=== PATIENT | female | born 1990 | race Caucasian/White ===

== ENCOUNTER 2016-07-06 10:12 | Observation (INO) | payer OTHER ==
[~2016-07-06] VITALS: Ht 154.9 cm; Wt 90.3 kg
[2016-07-06 11:06] VITALS: BP 120/75
== END 2016-07-06 13:20 | disposition home or self-care (01) ==
LOC: MFCC 10:12
PROVIDERS: ADMIT Obstetrics & Gynecology; ATTEND Obstetrics & Gynecology
DX: O26.899 Other specified pregnancy related conditions, unspecified trimester (principal); R10.9 Unspecified abdominal pain; Z3A.00 Weeks of gestation of pregnancy not specified
CPT/HCPCS: 59025; 76819; G0378; Q0092

== ENCOUNTER 2016-07-15 23:30 | Observation (INO) | payer OTHER ==
[~2016-07-15] VITALS: Ht 152.4 cm; Wt 90.7 kg
[2016-07-16] MEDS ORDERED: PREN1SGL25 PO (00:02)
[2016-07-16] MEDS ORDERED: IRON65TA11 PO (00:05)
[2016-07-16 00:21] VITALS: BP 112/66
== END 2016-07-16 01:30 | disposition home or self-care (01) ==
LOC: MLD 23:30
PROVIDERS: ADMIT Obstetrics & Gynecology; ATTEND Obstetrics & Gynecology
DX: O26.899 Other specified pregnancy related conditions, unspecified trimester (principal); R03.0 Elevated blood-pressure reading, without diagnosis of hypertension; Z3A.00 Weeks of gestation of pregnancy not specified
CPT/HCPCS: 76815; 81000; G0378; Q0092

== ENCOUNTER 2016-08-28 20:30 | Observation (INO) | payer OTHER ==
[~2016-08-28] VITALS: Ht 154.9 cm; Wt 94.3 kg
[~2016-08-28 20:30] MED LIST: IRON65TA11 PO; PREN1SGL25 PO
[2016-08-28 22:13] VITALS: BP 119/60
== END 2016-08-28 22:15 | disposition home or self-care (01) ==
LOC: MLD 20:30
PROVIDERS: ADMIT Obstetrics & Gynecology; ATTEND Obstetrics & Gynecology
DX: O12.03 Gestational edema, third trimester (principal); O26.893 Other specified pregnancy related conditions, third trimester; R10.30 Lower abdominal pain, unspecified; Z3A.36 36 weeks gestation of pregnancy
CPT/HCPCS: 76815; 81000; G0378

== ENCOUNTER 2016-09-09 17:28 | Observation (INO) | payer OTHER ==
[~2016-09-09] VITALS: Ht 154.9 cm; Wt 99.8 kg
[2016-09-09 18:30] VITALS: BP 126/73
[2016-09-09 18:30] LABS: BASOPHILS # (AUTO) 0.1 K/uL (0.00-0.22); BASOPHILS % (AUTO) 0.5 % (0.0-2.0); EOSINOPHILS # (AUTO) 0.3 K/uL (0-0.4); EOSINOPHILS % (AUTO) 1.9 % (0.0-4.0); HEMATOCRIT 38.1 % (36-48); HEMOGLOBIN 12.8 g/dL (12.0-16.0); LYMPHOCYTES # (AUTO) 1.7 K/uL (2.5-16.5); LYMPHOCYTES % (AUTO) 10.6 % (20.5-51.1); MEAN CORPUSCULAR HEMOGLOBIN 29 pg (27-31); MEAN CORPUSCULAR HGB CONC 34 g/dL (33-37); MEAN CORPUSCULAR VOLUME 87 fL (80-94); MONOCYTES % (AUTO) 6.3 % (1.7-9.3); NEUTROPHILS # (AUTO) 12.6 K/uL (1.8-7.7); NEUTROPHILS % (AUTO) 80.7 % (42.2-75.2); PLATELET COUNT (AUTO) 236 K/uL (140-450); RED BLOOD CELL COUNT(AUTO) 4.38 MIL/uL (4.20-5.40); RED CELL DISTRIBUTION WIDTH 12.6 % (11.6-13.7); WHITE BLOOD COUNT (AUTO) 15.7 K/uL (4.8-10.8)
[2016-09-09 18:55] LABS: CALCIUM 8.6 mg/dL (8.5-10.1); CARBON DIOXIDE 22.7 mmol/L (21-32); CREATININE 0.6 mg/dL (0.6-1.3); POTASSIUM 3.7 mmol/L (3.5-5.1)
[2016-09-09 18:57] LABS: APPEARANCE,URINE CLOUDY (CLEAR); BILIRUBIN,URINE NEGATIVE (NEGATIVE); BLOOD, URINE NEGATIVE (NEGATIVE); COLOR,URINE YELLOW (YELLOW); LEUKOCYTE ESTERASE ,URINE TRACE (NEGATIVE); NITRITE, URINE NEGATIVE (NEGATIVE); PROTEIN,URINE NEGATIVE (NEGATIVE); UGLUCOSE NEGATIVE (NEGATIVE); UROBILINOGEN,URINE 0.2 EU/dL (0.2 - 1)
[2016-09-09 19:01] LABS: ALBUMIN 2.6 g/dL (3.4-5.0); BILIRUBIN,DIRECT 0.1 mg/dL (0.0-0.3); TOTAL BILIRUBIN 0.4 mg/dL (0.0-1.0); TOTAL PROTEIN, SERUM 6.8 g/dL (6.4-8.2)
[2016-09-09 19:05] LABS: BACTERIA,URINE 4+ /HPF (None Seen); RBC,URINE 0-5 /HPF (0-5); SQUAMOUS EPITHELIAL CELL,UR 50-80 /LPF (0-3 (FEW))
[2016-09-09 19:12] LABS: PARTIAL THROMBOPLASTIN TIME 27.4 secs (22-35.6)
[2016-09-09] MEDS ORDERED: NALBUPHINE 10 MG/ML AMP IVP PRN (21:55)
[2016-09-09] MEDS ORDERED: PROMETHAZINE 25 MG/ML VIAL IM PRN (21:55)
[2016-09-09] MEDS ORDERED: NALBUPHINE HYDROCHLORIDE 10 MG/ML VIAL ONE (22:05)
[2016-09-10] MEDS ORDERED: NALBUPHINE HYDROCHLORIDE 10 MG/ML VIAL ONE (00:19)
[2016-09-10] MEDS ORDERED: TERBUTALINE 1 MG/ML VIAL SUBQ ONE (00:19)
[2016-09-10] MEDS ORDERED: ACETAMINOPHEN 325 MG TAB PO PRN (01:35)
[2016-09-10] MEDS ORDERED: ACETAMINOPHEN 325 MG TAB ONE ×2 (01:56→08:26)
[2016-09-10] MEDS ORDERED: ONDANSETRON 4 MG/2 ML VIAL ONE (01:56)
[2016-09-10] MEDS ORDERED: ONDANSETRON 4 MG/2 ML VIAL IVP PRN (02:45)
== END 2016-09-10 12:20 | disposition home or self-care (01) ==
LOC: MLD 17:28
PROVIDERS: ADMIT Obstetrics & Gynecology; ATTEND Obstetrics & Gynecology
DX: O26.893 Other specified pregnancy related conditions, third trimester (principal); R10.30 Lower abdominal pain, unspecified; R11.0 Nausea; R51 Headache; H53.8 Other visual disturbances; M79.89 Other specified soft tissue disorders; Z3A.38 38 weeks gestation of pregnancy
CPT/HCPCS: 36415; 76805; 80053; 81001; 82248; 85025; 85379; 85384; 85730; 87086; 87653; G0378; J2300; J2405; J3105; J7120; Q0092

== ENCOUNTER 2016-09-15 13:15 | Inpatient (IN) | payer OTHER ==
[~2016-09-15] VITALS: Ht 154.9 cm; Wt 99.8 kg
[2016-09-15 14:17] VITALS: BP 115/68
[2016-09-15] MEDS ORDERED: NALBUPHINE HYDROCHLORIDE 10 MG/ML VIAL IVP PRN (16:10)
[2016-09-15] MEDS ORDERED: METHYLERGONOVINE 0.2 MG/ML AMP IM PRN (16:10)
[2016-09-15] MEDS ORDERED: PROMETHAZINE 25 MG/ML VIAL IVP PRN (16:10)
[2016-09-15] MEDS ORDERED: OXYTOCIN 10 UNITS/ML VIAL IM SCH (16:10)
[2016-09-15] MEDS ORDERED: CARBOPROST 250 MCG/ML AMP IM PRN (16:10)
[2016-09-15] MEDS ORDERED: MISOPROSTOL 25 MCG TAB VG SCH (16:15)
[2016-09-15] MEDS ORDERED: NALBUPHINE HYDROCHLORIDE 10 MG/ML VIAL IVP SCH (16:19)
[2016-09-15] MEDS ORDERED: PROMETHAZINE 25 MG/ML VIAL IVP SCH (16:20)
[2016-09-15] MEDS ORDERED: MISOPROSTOL 25 MCG TAB VG PRN (16:25)
[2016-09-15] MEDS ORDERED: OXYTOCIN 20 UNITS/LR PREMIX 1,000 ML IV SCH (16:25)
[2016-09-15 17:04] LABS: HEMATOCRIT 39.5 % (36-48); HEMOGLOBIN 13.3 g/dL (12.0-16.0); MEAN CORPUSCULAR HEMOGLOBIN 29 pg (27-31); MEAN CORPUSCULAR HGB CONC 34 g/dL (33-37); MEAN CORPUSCULAR VOLUME 87 fL (80-94); PLATELET COUNT (AUTO) 240 K/uL (140-450); RED BLOOD CELL COUNT(AUTO) 4.54 MIL/uL (4.20-5.40); RED CELL DISTRIBUTION WIDTH 12.9 % (11.6-13.7); WHITE BLOOD COUNT (AUTO) 18.6 K/uL (4.8-10.8)
[2016-09-15 17:24] LABS: ANION GAP 12.8 (8-16); CALCIUM 8.6 mg/dL (8.5-10.1); CARBON DIOXIDE 21.3 mmol/L (21-32); CREATININE 0.6 mg/dL (0.6-1.3); POTASSIUM 4.1 mmol/L (3.5-5.1)
[2016-09-15 17:27] LABS: BAND % (MANUAL) 7 % (0-8); NEUTROPHILS % (MANUAL) 76 (43-65)
[2016-09-15 17:28] LABS: LYMPHOCYTES % (MANUAL) 11 % (20-46); MONOCYTES % (MANUAL) 6 % (5-12); PLATELET ESTIMATE ADEQUATE
[2016-09-15 17:30] LABS: ALBUMIN 2.7 g/dL (3.4-5.0); TOTAL BILIRUBIN 0.3 mg/dL (0.0-1.0)
[2016-09-15 17:37] LABS: BILIRUBIN,URINE NEGATIVE (NEGATIVE); BLOOD, URINE NEGATIVE (NEGATIVE); COLOR,URINE YELLOW (YELLOW); LEUKOCYTE ESTERASE ,URINE NEGATIVE (NEGATIVE); NITRITE, URINE NEGATIVE (NEGATIVE); PROTEIN,URINE NEGATIVE (NEGATIVE); UGLUCOSE NEGATIVE (NEGATIVE); UROBILINOGEN,URINE 0.2 EU/dL (0.2 - 1)
[2016-09-15 17:40] LABS: APPEARANCE,URINE CLEAR (CLEAR)
[2016-09-15] MEDS ORDERED: OXYTOCIN 20 UNITS/LR PREMIX 1,000 ML IV ONE (17:45)
[2016-09-15] MEDS: LACTATED RINGERS 1,000 ML IV SCH (20:12)
--- NOTE | 2016-09-16 06:45 | NUR ---
PATIENT HAS BEEN SCREENED AND CATEGORIZED LOW NUTRITION RISK. PATIENT WILL BE SEEN WITHIN 7 DAYS OF ADMISSION. 09/22/16 LUIS CORTEZ MS, RDN
[2016-09-16] MEDS ORDERED: MISOPROSTOL 25 MCG TAB PO PRN (10:25)
[2016-09-16] MEDS ORDERED: MISOPROSTOL 25 MCG TAB ONE ×2 (10:35→14:35)
[2016-09-16] MEDS ORDERED: PROMETHAZINE 25 MG/ML VIAL ONE (17:22)
[2016-09-16] MEDS ORDERED: NALBUPHINE HYDROCHLORIDE 10 MG/ML VIAL ONE (17:22)
[2016-09-16] MEDS ORDERED: ceFAZolin 1,000 MG VIAL ONE (21:28)
[2016-09-16] MEDS ORDERED: OXYTOCIN 10 UNITS/ML VIAL ONE (22:35)
[2016-09-16] MEDS ORDERED: ceFAZolin 1,000 MG VIAL IV ONE (22:40)
[2016-09-16] MEDS ORDERED: BUPIVACAINE-MPF 0.75% 10 ML VIAL INJ ONE (22:40)
[2016-09-16] MEDS: LACTATED RINGERS 1,000 ML IV SCH (22:42)
[2016-09-16] MEDS ORDERED: MIDAZOLAM 2 MG/2 ML VIAL ONE (22:48)
[2016-09-16] MEDS ORDERED: MORPHINE PRES FREE 10 MG/10 ML AMP IV ONE (22:48)
[2016-09-16] MEDS ORDERED: OXYTOCIN 20 UNITS/LR PREMIX 1,000 ML IV SCH (23:23)
[2016-09-16] MEDS ORDERED: ONDANSETRON 4 MG/2 ML VIAL IVP PRN ×2 (23:25)
[2016-09-16] MEDS ORDERED: diphenhydrAMINE 50 MG/ML VIAL IVP PRN ×2 (23:25)
[2016-09-16] MEDS ORDERED: NALOXONE 0.4 MG/ML VIAL IVP PRN ×3 (23:25)
[2016-09-16] MEDS ORDERED: HYDROmorphone 1 MG/ML AMP IVP PRN (23:25)
[2016-09-16] MEDS ORDERED: NALBUPHINE 10 MG/ML AMP IVP PRN (23:25)
[2016-09-16] MEDS ORDERED: MEPERIDINE 25 MG/ML SYR IVP PRN (23:25)
[2016-09-17] MEDS ORDERED: OXYTOCIN 20 UNITS/LR PREMIX 1,000 ML IV ONE (00:07)
[2016-09-17] MEDS ORDERED: NALOXONE 0.4 MG/ML VIAL IM PRN (01:50)
[2016-09-17] MEDS ORDERED: NALBUPHINE 10 MG/ML AMP IVP PRN (02:10)
[2016-09-17] MEDS ORDERED: oxyCODONE/APAP 5/325 MG 1 TAB TAB PO PRN (02:20)
[2016-09-17] MEDS ORDERED: TEMAZEPAM 15 MG CAP PO PRN (02:20)
[2016-09-17] MEDS ORDERED: MEASLES, MUMPS, AND RUBELLA 1 VIAL SQVAC PRN (02:20)
[2016-09-17] MEDS ORDERED: SIMETHICONE 80 MG TAB.CHEW PO PRN (02:20)
[2016-09-17] MEDS: KETOROLAC 30 MG/ML VIAL IM/IVP SCH ×3 (05:30→17:23)
[2016-09-17 06:50] LABS: BASOPHILS # (AUTO) 0.1 K/uL (0.00-0.22); BASOPHILS % (AUTO) 0.4 % (0.0-2.0); EOSINOPHILS # (AUTO) 0.1 K/uL (0-0.4); EOSINOPHILS % (AUTO) 0.9 % (0.0-4.0); HEMATOCRIT 35.1 % (36-48); HEMOGLOBIN 11.7 g/dL (12.0-16.0); LYMPHOCYTES # (AUTO) 1.5 K/uL (2.5-16.5); LYMPHOCYTES % (AUTO) 9.4 % (20.5-51.1); MEAN CORPUSCULAR HEMOGLOBIN 29 pg (27-31); MEAN CORPUSCULAR HGB CONC 33 g/dL (33-37); MEAN CORPUSCULAR VOLUME 86 fL (80-94); MONOCYTES # (AUTO) 1.1 K/uL (0.8-1.0); MONOCYTES % (AUTO) 6.6 % (1.7-9.3); NEUTROPHILS # (AUTO) 13.4 K/uL (1.8-7.7); NEUTROPHILS % (AUTO) 82.7 % (42.2-75.2); PLATELET COUNT (AUTO) 230 K/uL (140-450); RED BLOOD CELL COUNT(AUTO) 4.07 MIL/uL (4.20-5.40); RED CELL DISTRIBUTION WIDTH 12.7 % (11.6-13.7); WHITE BLOOD COUNT (AUTO) 16.2 K/uL (4.8-10.8)
[2016-09-17] MEDS ORDERED: LACTATED RINGERS 1,000 ML IV SCH (07:15)
[2016-09-17] MEDS: OXYTOCIN 20 UNITS/LR PREMIX 1,000 ML IV SCH ×2 (10:30→14:15)
[2016-09-17] MEDS: DOCUSATE SOD/SENNA 50/8.6 MG 1 TAB PO SCH (21:24)
[2016-09-17] MEDS: IBUPROFEN 800 MG TAB PO PRN (22:48)
[2016-09-18] MEDS: IBUPROFEN 800 MG TAB PO PRN ×3 (09:06→22:33)
[2016-09-18] MEDS: DOCUSATE SOD/SENNA 50/8.6 MG 1 TAB PO SCH (21:00)
[2016-09-19] MEDS: HYDROcodone/APAP 5/325 MG 1 TAB TAB PO PRN ×3 (04:21→15:04)
[2016-09-19] MEDS ORDERED: IBUP-2213 PO (10:13)
== END 2016-09-19 18:00 | disposition home or self-care (01) | DRG 766 ==
LOC: MLD 13:15 → OBSVTOIN 15:50 → MFCC 09-17 00:35
PROVIDERS: ADMIT Obstetrics & Gynecology; ATTEND Obstetrics & Gynecology
PROC: 10D00Z1 Extraction of Products of Conception, Low, Open Approach (ICD-10-PCS; principal; 2016-09-16 20:45)
DX: O33.9 Maternal care for disproportion, unspecified (principal); O61.9 Failed induction of labor, unspecified; O64.0XX0 Obstructed labor due to incomplete rotation of fetal head, not applicable or unspecified; O89.4 Spinal and epidural anesthesia-induced headache during the puerperium; O69.81X0 Labor and delivery complicated by cord around neck, without compression, not applicable or unspecified; O24.429 Gestational diabetes mellitus in childbirth, unspecified control; O62.2 Other uterine inertia; Z37.0 Single live birth; Z28.21 Immunization not carried out because of patient refusal; Z3A.39 39 weeks gestation of pregnancy; Z80.3 Family history of malignant neoplasm of breast; Z80.0 Family history of malignant neoplasm of digestive organs; Z88.1 Allergy status to other antibiotic agents; Z88.8 Allergy status to other drugs, medicaments and biological substances
CPT/HCPCS: 36415; 51702; 80053; 81003; 82948; 85025; 86592; 86886; 86900; 86901; G0378; J0690; J1885; J2250; J2270; J2300; J2550; J2590; J3490; J7060; J7120